=== PATIENT | female | born 1975 | race Caucasian/White ===

== ENCOUNTER 2023-12-18 07:22 | Emergency (ER) | payer OTHER, BC ==
[~2023-12-18] VITALS: Ht 170.2 cm; Wt 76.8 kg
[2023-12-18] MEDS ORDERED: SERTRALINE20 MG/1 ML PO (07:42)
[2023-12-18] MEDS ORDERED: WARFARIN SODIUM10 MG PO (07:42)
[2023-12-18] MEDS ORDERED: WELLBUTRIN SR100 MG PO (07:42)
[2023-12-18] MEDS ORDERED: LEVOXYL50 MCG PO (07:43)
[2023-12-18] MEDS ORDERED: ACETAMINOPHEN 500 MG TAB PO ONE (07:45)
[2023-12-18 09:13] VITALS: BP 96/67
== END 2023-12-18 09:13 | disposition home or self-care (01) ==
LOC: ED 07:22
DX: S16.1XXA Strain of muscle, fascia and tendon at neck level, initial encounter (principal); S70.12XA Contusion of left thigh, initial encounter; V89.2XXA Person injured in unspecified motor-vehicle accident, traffic, initial encounter; Z79.01 Long term (current) use of anticoagulants; Z79.899 Other long term (current) drug therapy; Z88.5 Allergy status to narcotic agent
CPT/HCPCS: 70450; 72125; 99284; A9270